=== PATIENT | female | born 1990 | race Caucasian/White ===

== ENCOUNTER 2020-06-18 10:24 | Emergency (ER) | payer OTHER ==
[2020-06-18 10:33] VITALS: BP 113/60; PULSE 75; BMI 23.4
[2020-06-18] MEDS ORDERED: LIDOCAINE 5% TOPICAL PATCH TP ONE (10:54)
[2020-06-18] MEDS ORDERED: CYCLOBENZAPRINE HCL 10 MG TABLET (FP) PO ONE (10:54)
[2020-06-18] MEDS ORDERED: LIDOCAINE 5% TOPICAL PATCH ONE (11:00)
[2020-06-18] MEDS ORDERED: CYCLOBENZAPRINE HCL 10 MG TABLET (FP) ONE (11:01)
[2020-06-18] MEDS ORDERED: LIDOCAINE PATCH REMOVAL MC SCH (22:00)
== END 2020-06-18 12:04 | disposition home or self-care (01) ==
LOC: JERFT 10:24 → JER 10:24 → JERFT 12:04
DX: M62.838 Other muscle spasm (principal)
CPT/HCPCS: 99284-25